=== PATIENT | male | born 1960 ===

== ENCOUNTER 2018-10-12 00:51 | Emergency (ER) | payer SELFPAY ==
[2018-10-12 01:04] VITALS: BP 0/0; PULSE 0; BMI 29.5
--- NOTE | 2018-10-12 01:07 | PDOC ---
History of Present Illness - General Chief Complaint: Cardiac Arrest Stated Complaint: CARDIAC AREST Past History - Past Medical History Allergies/Adverse Reactions: Allergies Allergy/AdvReac Type Severity Reaction Status Date / Time No Allergy Information Allergy Verified 10/12/18 01:03 Available COPD: No Other medical history: UNKNOWN HISTORY - Suicide/Smoking/Psychosocial Hx Smoking History: Unknown if ever smoked *Physical Exam - Vital Signs Last Vital Signs Temp Pulse Resp BP Pulse Ox 0 L 0 L 0/0 L 0 L 10/12/18 01:01 10/12/18 01:01 10/12/18 01:01 10/12/18 01:01 Medical Decision Making - Medical Decision Making 10/12/18 01:04 Case d/w Esthela Carpenter Was in normal health, slumped over. 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
--- NOTE | 2018-10-12 01:14 | PDOC ---
History of Present Illness - General Chief Complaint: Cardiac Arrest Stated Complaint: CARDIAC AREST Time Seen by Provider: 10/12/18 01:04 History Source: EMS, Friend Exam Limitations: Clinical Condition - History of Present Illness Initial Comments: 10/12/18 01:09 58y M unknown pmhx presents with cardiac arrest. Per EMS and PD the patient was in a hotel room talking with a coworker, dazed off and then collapsed onto a bed and urinated on himself. They called EMS and upon arrival the pt was in vfib, Con deviced was placed and ACLS was started and pt was given 2 shocks, 6 epi, 300mg Amiodarone, calcium prior to arrival. BGM was 154.. subsequent rhythms were asystole. Pt was intubated in the field. Upon arrival ACLS was continued and directed by myself. Pt was given another 2 epinephrines. Pupils were fixed and dilated. After several pulses checks there was never any cardiac activity on bedside echo nor any beats on monitoring specialist. The pt was pronounced at 12:59am on 10/12/2018. [place] from [place] - attempting to find pts family members through his collegues and boss. Will notify the medical office clerk. per PD, there was a bottle of ASA and ibuporfen - no other medications, drugs or paraphranalia present. Past History - Past Medical History Allergies/Adverse Reactions: Allergies Allergy/AdvReac Type Severity Reaction Status Date / Time No Allergy Information Allergy Verified 10/12/18 01:03 Available COPD: No Other medical history: UNKNOWN HISTORY - Suicide/Smoking/Psychosocial Hx Smoking History: Unknown if ever smoked Review of Systems - Review of Systems Able to Perform ROS?: No *Physical Exam - Vital Signs Last Vital Signs Temp Pulse Resp BP Pulse Ox 0 L 0 L 0/0 L 0 L 10/12/18 01:01 10/12/18 01:01 10/12/18 01:01 10/12/18 01:01 - Physical Exam Comments: 10/12/18 01:13 GENERAL: The patient is nonresponsive, HEAD: Normocephalic, atraumatic. EYES: pupils 6mm fixed ENT: ett in place LUNGS: Breath sounds bilaterally HEART: no heart sounds ABDOMEN: Soft, no eeccymosis EXTREMITIES: no edema NEUROLOGICAL: unresponsive SKIN: no rashes Medical Decision Making - Medical Decision Making 10/12/18 01:39 case dw [facility]al - accepted to [facility]. [place] release number [id number] Case discussed with Kelsey Leon ([phone]) - notified her of his passing. notes he has a hx of htn *DC/Admit/Observation/Transfer Diagnosis at time of Disposition: Cardiac arrest - Discharge Dispostion Disposition: Condition at time of disposition: Decision to Admit order: No - Referrals - Patient Instructions - Post Discharge Activity
--- NOTE | 2018-10-13 15:31 | EKG ---
Test Reason : Blood Pressure : / mmHG Vent. Rate : 145 BPM Atrial Rate : 197 BPM P-R Int : 000 ms QRS Dur : 004 ms QT Int : 258 ms P-R-T Axes : 000 000 -23 degrees QTc Int : 400 ms agonal rhythm , motion artifacts unable to interpret non diagnostic ekg ABNORMAL ECG NO PREVIOUS ECGS AVAILABLE Confirmed by MICHAEL DIAS, BONG ([id number]) on 10/13/2018 3:31:21 PM Referred By: Confirmed By:BONG RODRIGUEZ MD
== END 2018-10-12 02:34 | disposition expired ==
LOC: JER 00:51
PROC: 5A12012 Performance of Cardiac Output, Single, Manual (ICD-10-PCS; principal; 2018-10-12)
PROC: B246ZZZ Ultrasonography of Right and Left Heart (ICD-10-PCS; 2018-10-12)
DX: I46.9 Cardiac arrest, cause unspecified (principal); I10 Essential (primary) hypertension
CPT/HCPCS: 0439T; 92950; 93307; 93005; 93010; 99283-25